=== PATIENT | male | born 1940 | race Caucasian/White ===

== ENCOUNTER 2016-08-08 | Emergency (ER) | payer OTHER ==
[2016-08-08 16:40] LABS: RED BLOOD COUNT 4.79 M/UL (4.20-5.50); WHITE BLOOD COUNT 10.2 K/UL (4.5-11.0)
[2016-08-08 17:00] LABS: BUN/CREATININE RATIO 19 (0-10)
== END 2016-08-08 20:42 | disposition short-term general hospital (02) ==
PROVIDERS: Emergency Medicine
DX: R53.1 Weakness (principal); I48.91 Unspecified atrial fibrillation; R22.31 Localized swelling, mass and lump, right upper limb; T45.515A Adverse effect of anticoagulants, initial encounter; M79.601 Pain in right arm; I11.0 Hypertensive heart disease with heart failure; I50.9 Heart failure, unspecified; Z90.49 Acquired absence of other specified parts of digestive tract
CPT/HCPCS: 36415; 70450; 71010; 80053; 83880; 84484; 85025; 85610; 93005; 93971; 96374; 96375; 96376; 99291; J2270; J2405